=== PATIENT | female | born 1960 | race American Indian/Alaskan Native ===

== ENCOUNTER 2019-08-13 11:10 | Emergency (ER) | payer OTHER ==
--- NOTE | 2019-08-13 11:41 | Emergency Department Report ---
Chief Complaint: High BP Stated Complaint: BP HIGH Time Seen by Provider: 08/13/19 11:25 - HPI History of Present Illness: 59-year-old -[place] female presents to the emergency room concern for elevated blood pressure. Patient states that she woke up with about 4 AM and was having tingling in both hands. Patient states that she had no shortness of breath no headache no chest pain nausea vomiting or abdominal pain. Patient reports that she checked her blood pressure and it was elevated she went to the fire house they checked blood pressure was elevated so she decided to present to our ED. patient's blood pressure in triage was 174/95 and we repeated it here in the exam room and it was 165/91. Patient does report she is taking her lisinopril but not quite sure what the dosage. Patient does endorse that she has not seen her primary care provider in over a year and a half. - Exam Vital Signs: Vital Signs 08/13/19 08/13/19 11:13 11:31 Temperature 98 F Pulse Rate 98 H 92 H Respiratory 16 Rate Blood Pressure 174/95 Blood Pressure 165/91 [Left] O2 Sat by Pulse 100 Oximetry MSE screening note: Focused history and physical exam performed. Due to findings the following was ordered: 59-year-old -[place] female presents to the emergency room concern for elevated blood pressure. Patient states that she woke up with about 4 AM and was having tingling in both hands. Patient states that she had no shortness of breath no headache no chest pain nausea vomiting or abdominal pain. Patient reports that she checked her blood pressure and it was elevated she went to the fire house they checked blood pressure was elevated so she decided to present to our ED. patient's blood pressure in triage was 174/95 and we repeated it here in the exam room and it was 165/91. Patient does report she is taking her lisinopril but not quite sure what the dosage. Patient does endorse that she has not seen her primary care provider in over a year and a half. I recommend for you to follow-up with your primary care provider. I have also listed the [place] [facility] on [facility] as they may be able to assist you. Please continue to take your blood pressure medication as prescribed. Please try to follow a low-sodium diet refrain from processed foods sodas hot dogs ham dominguez and sausage. Increase your water intake. ED Disposition for MSE Disposition: Z-07 MED SCREENING EXAM-LEFT Is pt being admited?: No Does the pt Need Aspirin: No Condition: Stable Instructions: Hypertension (ED) Additional Instructions: I recommend for you to follow-up with your primary care provider. I have also listed the [place] clinic on [facility] as they may be able to assist you. Please continue to take your blood pressure medication as prescribed. Please try to follow a low-sodium diet refrain from processed foods sodas hot dogs ham dominguez and sausage. Increase your water intake. Referrals: [facility] [Other] - 3-5 Days
[2019-08-13 11:43] VITALS: BP 165/91
== END 2019-08-13 11:45 | disposition left against medical advice (07) ==
LOC: ED 11:10
DX: I10 Essential (primary) hypertension (principal); R20.2 Paresthesia of skin
CPT/HCPCS: 99282

== ENCOUNTER 2020-07-14 09:01 | Emergency (ER) | payer OTHER ==
--- NOTE | 2020-07-14 09:34 | Emergency Department Report ---
Blank Doc - Documentation Documentation: 60-year-old female that presents with acute symptoms of forgetfulness. Exam: Neuro exam is unremarkable. No facial droop. No one-sided weakness. 1- This initial assessment/diagnostic orders/clinical plan/ treatment(s) is/are subject to change based on pt's health status, clinical progression and re- assessment by fellow clinical providers in the ED. Further treatment and workup at subsequent clinical provers discretion. Patient/guardians urged not to elope from ED as their condition may be serious if not clinically assessed and managed. 2-labs with imaging studies
--- NOTE | 2020-07-14 10:21 | Cat Scan Report ---
CT head/brain wo con INDICATION / CLINICAL INFORMATION: 60 years Female; Patient complains of acute forgetful symptoms. TECHNIQUE: Routine CT head without contrast. All CT scans at this location are performed using CT dos e reduction for ALARA by means of automated exposure control. COMPARISON: None available. FINDINGS: There is encephalomalacia involving right frontal lobe most consistent with old infarct at. There is otherwise moderate cerebral white matter disease most consistent with microvascular angiopathy. There appear to be old small lacunar infarcts along the head of the caudate lobes. There is mild cerebral atrophy with associated mild prominence of the ventricular system. There are f oci of calcification within the basal ganglia. There is no clear CT evidence of acute intracranial he morrhage or significant mass effect. ORBITS: No significant abnormality of visualized orbits. SINUSES / MASTOIDS: No significant abnormality in the visualized paranasal sinuses or mastoid air denis ls. CRANIOCERVICAL JUNCTION: No significant abnormality. ADDITIONAL FINDINGS: There is prominence of the visualized nasopharyngeal soft tissues which is nonsp ecific though may reflect a lymphoid hypertrophy. IMPRESSION: 1. There is microvascular angiopathy as detailed above without CT evidence of acute intracranial hemo rrhage. Signer Name: Mario Abad MD Signed: 07/14/2020 10:17 AM Workstation Name: [id number]
[2020-07-14 10:24] LABS: Basophils % (Auto) 0.6 % (0.0-1.8); Eosinophils # (Auto) 0.1 K/mm3 (0.0-0.4); Eosinophils % (Auto) 0.9 % (0.0-4.3); Hematocrit 43.5 % (30.3-42.9); Hemoglobin 14.3 gm/dl (10.1-14.3); Lymphocytes # (Auto) 2.2 K/mm3 (1.2-5.4); Lymphocytes % (Auto) 34.1 % (13.4-35.0); Mean Corpuscular HGB Conc 33 % (30-34); Mean Corpuscular Volume 95 fl (79-97); Monocytes # (Auto) 0.5 K/mm3 (0.0-0.8); Monocytes % (Auto) 7.4 % (0.0-7.3); Platelet Count 269 K/mm3 (140-440); Red Blood Count 4.56 M/mm3 (3.65-5.03); Red Cell Distribution Width 13.9 % (13.2-15.2)
[2020-07-14 10:35] LABS: INR 0.97 (0.87-1.13)
[2020-07-14 10:36] LABS: Partial Thromboplastin Time 28.2 Sec. (24.2-36.6); Thrombin Time 17.4 Sec. (15.1-19.6)
[2020-07-14 10:47] LABS: Creatine Kinase MB 2.3 ng/mL (0.0-4.0)
[2020-07-14 10:49] LABS: Alanine Aminotransferase 12 units/L (7-56); BUN/Creatinine Ratio 14; Blood Urea Nitrogen 11 mg/dL (7-17); Calcium 8.8 mg/dL (8.4-10.2); Hemolysis Index 8
--- NOTE | 2020-07-14 11:58 | Emergency Department Report ---
ED General Adult HPI - General Chief complaint: Medical Clearance Stated complaint: Somebody is stealing my amBX stuff PUI?: No Time Seen by Provider: 07/14/20 09:31 Source: patient, family, EMS ( EMS documentation not available at time of chart dictation ), RN notes reviewed Mode of arrival: Ambulatory Limitations: Other (Patient is a poor historian) - History of Present Illness Initial comments: The patient was evaluated in the emergency department for symptoms described in the history of present illness. He/she was evaluated in the context of the global COVID-19 pandemic, which necessitated consideration that the patient might be at risk for infection with the virus that causes COVID-19. Institutional protocols and algorithms that pertain to the evaluation of patients at risk for COVID-19 are in a state of rapid change based on information released by regulatory bodies including the CDC and federal and foundations behavioral health organizations. These policies and algorithms were followed during the patient's care in the emergency department. Please note that these policies, procedures and recommendations changed on a rapid basis. The patient is a 60-year-old female. She has followed with the [facility] in the past. She also has a history of hypertension and hidradenitis. The patient lives with her grandson, Mr. Angeles; [phone]. History largely obtained from her grandson. The patient presented to the emergency room with a concern that someone is stealing her amBX paraphernalia and merchandise. The patient denies physical pain. Patient herself has no immediate medical complaints. She denies headache, neck pain, chest pain, abdominal pain, shortness of breath dysuria. S he denies homicidality and suicidality. She denies loss of taste and smell. She denies Covid symptomatology. As per her grandson, over the past year, the patient has had issues with "memory problems." The patient has become forgetful, she has been intermittently hallucinating, and has fluctuating moods. The patient has resisted medical evaluation in the past, because as per her grandson "she does not want to be called crazy." As per her grandson, no Covid exposure. As per her grandson, no trip and fall, cough, urinary symptoms, Covid exposure. Today, the patient was brought to the emergency room because the patient apparently called law enforcement while at home, because she was concerned that someone was stealing her amBX paraphernalia. As per her grandson, the patient is not really driving herself around, or taking care of her personal finances. -: month(s), year(s) Consistency: intermittent Improves with: none Worsens with: none Associated Symptoms: denies other symptoms - Related Data Home Medications Medication Instructions Recorded Confirmed Last Taken Lisinopril 07/14/20 3 Months Ago ~04/16/20 Allergies Allergy/AdvReac Type Severity Reaction Status Date / Time No Known Allergies Allergy Verified 07/14/20 12:59 ED Review of Systems ROS: Stated complaint: FORGETTING THINGS Other details as noted in HPI Constitutional: denies: fever Eyes: denies: eye discharge ENT: denies: epistaxis Respiratory: denies: cough Cardiovascular: denies: chest pain Gastrointestinal: denies: abdominal pain Genitourinary: denies: dysuria Neurological: confusion. denies: headache, weakness Psychiatric: other (Hallucinations). denies: homicidal thoughts, suicidal thoughts ED Past Medical Hx - Past Medical History Previous Medical History?: Yes Hx Hypertension: Yes - Surgical History Past Surgical History?: No - Social History Smoking Status: Never Smoker Substance Use Type: None - Medications Home Medications: Home Medications Medication Instructions Recorded Confirmed Last Taken Type Lisinopril 07/14/20 3 Months Ago History ~04/16/20 ED Physical Exam - General Limitations: Other (Patient is a poor historian) General appearance: in no apparent distress (The patient is alert to name. She knows that she is in the hospital.) - Head Head exam: Present: atraumatic, normocephalic - Eye Eye exam: Present: normal appearance, PERRL, EOMI, other (Visual acuity intact t o finger counting, color perception, reading at a close distance). Absent: nystagmus - ENT ENT exam: Present: normal exam, normal orophraynx, mucous membranes moist, normal external ear exam - Neck Neck exam: Present: normal inspection, full ROM. Absent: tenderness, meningismus - Respiratory Respiratory exam: Present: normal lung sounds bilaterally. Absent: respiratory distress, wheezes, rales, rhonchi, stridor, decreased breath sounds - Cardiovascular Cardiovascular Exam: Present: regular rate, normal rhythm, normal heart sounds. Absent: bradycardia, tachycardia, irregular rhythm, systolic murmur, diastolic murmur, rubs, gallop - GI/Abdominal GI/Abdominal exam: Present: soft. Absent: distended, tenderness, guarding, rebound, rigid, pulsatile mass - Extremities Exam Extremities exam: Present: normal inspection, full ROM, other (2+ pulses noted in the bilateral upper and lower extremities. There is no palpable cord. negative Homans sign. Muscular compartments are soft. The pelvis is stable.). Absent: pedal edema, calf tenderness - Back Exam Back exam: Present: normal inspection, full ROM. Absent: tenderness, CVA tenderness (R), CVA tenderness (L), paraspinal tenderness, vertebral tenderness - Neurological Exam Neurological exam: Present: alert (The patient is alert to name. She thinks it is June. She does not know the year. She does not know the current president. She is able to recall 3 out of 3 words at 0 minutes, and 0 out of 3 words at 5 minutes.), normal gait, other (No facial droop. Tongue midline. Extraocular movements intact bilaterally. Facial sensation intact to light touch in V1, V2, V3 distribution bilaterally. 5 and a 5 strength in 4 extremities. Sensation intact to light touch in 4 extremities.). Absent: motor sensory deficit (There is no past-pointing. There is normal [id number].) - Psychiatric Psychiatric exam: Present: normal affect, normal mood. Absent: homicidal ideation, suicidal ideation - Skin Skin exam: Present: warm, dry, intact, normal color. Absent: rash ED Course Vital Signs 07/14/20 07/14/20 07/14/20 09:08 11:39 11:41 Temperature 98.8 F 97.7 F Pulse Rate 100 H 98 H 84 Respiratory 15 14 16 Rate Blood Pressure 154/93 Blood Pressure 191/93 [Left] O2 Sat by Pulse 98 98 Oximetry 07/14/20 07/14/20 07/14/20 12:11 12:30 13:01 Temperature Pulse Rate 79 84 81 Respiratory 11 L 21 15 Rate Blood Pressure 191/93 152/74 155/90 Blood Pressure [Left] O2 Sat by Pulse Oximetry 07/14/20 07/14/20 07/14/20 13:31 14:00 14:27 Temperature Pulse Rate 83 92 H Respiratory 16 17 Rate Blood Pressure 155/78 164/81 178/107 Blood Pressure [Left] O2 Sat by Pulse 98 Oximetry - Reevaluation(s) Reevaluation #1: 07/14/20 13:04 Differential diagnosis, including but not limited to: Urinary tract infection, dementia, thyroid derangement, electrolyte derangement Assessment and plan: 60-year-old female, who was afebrile with reassuring vital signs with the exception of elevated blood pressure, presenting with loss of memory, cognitive function, hallucinations, fluctuating mood as per family, over the past year. Suspect dementia. Laboratory studies thus far unremarkable, urinalysis unremarkable, noncontrast CT scan of the brain negative for acute findings, TSH pending at this time. Case management consultation is requested. Psychiatric consultation is requested. At this point in time, patient presents as alert to name, pleasant and cooperative, not violent or combative, do not see indication for 1013 hold or involuntary hold at this time. Coronavirus screen is ordered in anticipation of possible placement into a geriatric psychiatry unit. Patient has evidence of a well-healed bilateral hidradenitis suppurativa in her bilateral axillary folds. However, she does not appear to be acutely infected. Reassess after TSH has resulted. Case management and psychiatric recommendations will be appreciated. I have discussed this extensively with the patient's grandson. Of note, the patient was taking [id number] caffeine supplementation,vivarin, but has not taken it as of recently. It appears that the main reason that the patient presented today is because her family is having difficulty with her behavior. Reevaluation #2: 07/14/20 13:08 TSH within normal limits. Patient resting comfortably in stretcher, and in no acute distress. Patient does not appear to have an immediate medical contraindication to psychiatric admission, evaluation, consultation and placement. Disposition as per psychiatry team, and case management team. If psychiatry recommends outpatient follow-up for presumed dementia, I think this would be reasonable, especially if case management is able to coordinate a safe disposition to home family 07/14/20 16:16 Psychiatric recommendations are reviewed and appreciated. They have recommended a 1013. I have signed this and ordered it. ED Medical Decision Making - Lab Data Result diagrams: 07/14/20 09:53 07/14/20 09:53 Vital Signs 07/14/20 07/14/20 07/14/20 09:08 11:39 11:41 Temperature 98.8 F 97.7 F Pulse Rate 100 H 98 H 84 Respiratory 15 14 16 Rate Blood Pressure 154/93 Blood Pressure 191/93 [Left] O2 Sat by Pulse 98 98 Oximetry 07/14/20 12:11 Temperature Pulse Rate 79 Respiratory 11 L Rate Blood Pressure 191/93 Blood Pressure [Left] O2 Sat by Pulse Oximetry Lab Results 07/14/20 07/14/20 07/14/20 Range/Units 09:53 09:53 09:53 WBC 6.5 (4.5-11.0) K/mm3 RBC 4.56 (3.65-5.03) M/mm3 Hgb 14.3 (10.1-14.3) gm/dl Hct 43.5 H (30.3-42.9) % MCV 95 (79-97) fl MCH 31 (28-32) pg MCHC 33 (30-34) % RDW 13.9 (13.2-15.2) % Plt Count 269 (140-440) K/mm3 Lymph % (Auto) 34.1 (13.4-35.0) % Davie % (Auto) 7.4 H (0.0-7.3) % Eos % (Auto) 0.9 (0.0-4.3) % Baso % (Auto) 0.6 (0.0-1.8) % Lymph # (Auto) 2.2 (1.2-5.4) K/mm3 Davie # (Auto) 0.5 (0.0-0.8) K/mm3 Eos # (Auto) 0.1 (0.0-0.4) K/mm3 Baso # (Auto) 0.0 (0.0-0.1) K/mm3 Seg Neutrophils % 57.0 (40.0-70.0) % Seg Neutrophils # 3.7 (1.8-7.7) K/mm3 PT 12.7 (12.2-14.9) Sec. INR 0.97 (0.87-1.13) APTT 28.2 (24.2-36.6) Sec. Thrombin Time 17.4 (15.1-19.6) Sec. Sodium 141 (137-145) mmol/L Potassium 3.5 L (3.6-5.0) mmol/L Chloride 103.1 (98-107) mmol/L Carbon Dioxide 26 (22-30) mmol/L Anion Gap 15 mmol/L BUN 11 (7-17) mg/dL Creatinine 0.8 (0.6-1.2) mg/dL Estimated GFR > 60 ml/min BUN/Creatinine Ratio 14 % Glucose 91 (65-100) mg/dL Calcium 8.8 (8.4-10.2) mg/dL Magnesium (1.7-2.3) mg/dL Total Bilirubin 0.30 (0.1-1.2) mg/dL AST 15 (5-40) units/L ALT 12 (7-56) units/L Alkaline Phosphatase 80 (35-129) units/L Total Creatine Kinase 234 H (30-135) units/L CK-MB (CK-2) 2.3 (0.0-4.0) ng/mL CK-MB (CK-2) Rel Index 0.9 (0-4) Troponin T < 0.010 (0.00-0.029) ng/mL Total Protein 7.5 (6.3-8.2) g/dL Albumin 4.0 (3.9-5) g/dL Albumin/Globulin Ratio 1.1 % Urine Color (Yellow) Urine Turbidity (Clear) Urine pH (5.0-7.0) Ur Specific [place] (1.003-1.030) Urine Protein (Negative) mg/dL Urine Glucose (UA) (Negative) mg/dL Urine Ketones (Negative) mg/dL Urine Blood (Negative) Urine Nitrite (Negative) Urine Bilirubin (Negative) Urine Urobilinogen (<2.0) mg/dL Ur Leukocyte Esterase (Negative) Urine WBC (Auto) (0.0-6.0) /HPF Urine RBC (Auto) (0.0-6.0) /HPF U Epithel Cells (Auto) (0-13.0) /HPF Urine Mucus /HPF Salicylates (2.8-20.0) mg/dL Urine Opiates Screen Urine Methadone Screen Acetaminophen (10.0-30.0) ug/mL Ur Barbiturates Screen Ur Phencyclidine Scrn Ur Amphetamines Screen U Benzodiazepines Scrn Urine Cocaine Screen U Marijuana (THC) Screen Drugs of Abuse Note Plasma/Serum Alcohol (0-0.07) % 05/09/21 05/09/21 05/09/21 Range/Units 11:53 11:53 12:15 WBC (4.5-11.0) K/mm3 RBC (3.65-5.03) M/mm3 Hgb (10.1-14.3) gm/dl Hct (30.3-42.9) % MCV (79-97) fl MCH (28-32) pg MCHC (30-34) % RDW (13.2-15.2) % Plt Count (140-440) K/mm3 Lymph % (Auto) (13.4-35.0) % Davie % (Auto) (0.0-7.3) % Eos % (Auto) (0.0-4.3) % Baso % (Auto) (0.0-1.8) % Lymph # (Auto) (1.2-5.4) K/mm3 Davie # (Auto) (0.0-0.8) K/mm3 Eos # (Auto) (0.0-0.4) K/mm3 Baso # (Auto) (0.0-0.1) K/mm3 Seg Neutrophils % (40.0-70.0) % Seg Neutrophils # (1.8-7.7) K/mm3 PT (12.2-14.9) Sec. INR (0.87-1.13) APTT (24.2-36.6) Sec. Thrombin Time (15.1-19.6) Sec. Sodium (137-145) mmol/L Potassium (3.6-5.0) mmol/L Chloride (98-107) mmol/L Carbon Dioxide (22-30) mmol/L Anion Gap mmol/L BUN (7-17) mg/dL Creatinine (0.6-1.2) mg/dL Estimated GFR ml/min BUN/Creatinine Ratio % Glucose (65-100) mg/dL Calcium (8.4-10.2) mg/dL Magnesium 1.90 (1.7-2.3) mg/dL Total Bilirubin (0.1-1.2) mg/dL AST (5-40) units/L ALT (7-56) units/L Alkaline Phosphatase (35-129) units/L Total Creatine Kinase 233 H (30-135) units/L CK-MB (CK-2) (0.0-4.0) ng/mL CK-MB (CK-2) Rel Index (0-4) Troponin T (0.00-0.029) ng/mL Total Protein (6.3-8.2) g/dL Albumin (3.9-5) g/dL Albumin/Globulin Ratio % Urine Color Yellow (Yellow) Urine Turbidity Clear (Clear) Urine pH 6.0 (5.0-7.0) Ur Specific [place] 1.023 (1.003-1.030) Urine Protein 30 mg/dl (Negative) mg/dL Urine Glucose (UA) Neg (Negative) mg/dL Urine Ketones 20 (Negative) mg/dL Urine Blood Neg (Negative) Urine Nitrite Neg (Negative) Urine Bilirubin Neg (Negative) Urine Urobilinogen < 2.0 (<2.0) mg/dL Ur Leukocyte Esterase Sm (Negative) Urine WBC (Auto) 4.0 (0.0-6.0) /HPF Urine RBC (Auto) 4.0 (0.0-6.0) /HPF U Epithel Cells (Auto) 2.0 (0-13.0) /HPF Urine Mucus 1+ /HPF Salicylates (2.8-20.0) mg/dL Urine Opiates Screen Negative Urine Methadone Screen Negative Acetaminophen (10.0-30.0) ug/mL Ur Barbiturates Screen Negative Ur Phencyclidine Scrn Negative Ur Amphetamines Screen Negative U Benzodiazepines Scrn Negative Urine Cocaine Screen Negative U Marijuana (THC) Screen Negative Drugs of Abuse Note Disclamer Plasma/Serum Alcohol (0-0.07) % 07/14/20 07/14/20 07/14/20 Range/Units 12:15 12:15 12:15 WBC (4.5-11.0) K/mm3 RBC (3.65-5.03) M/mm3 Hgb (10.1-14.3) gm/dl Hct (30.3-42.9) % MCV (79-97) fl MCH (28-32) pg MCHC (30-34) % RDW (13.2-15.2) % Plt Count (140-440) K/mm3 Lymph % (Auto) (13.4-35.0) % Davie % (Auto) (0.0-7.3) % Eos % (Auto) (0.0-4.3) % Baso % (Auto) (0.0-1.8) % Lymph # (Auto) (1.2-5.4) K/mm3 Davie # (Auto) (0.0-0.8) K/mm3 Eos # (Auto) (0.0-0.4) K/mm3 Baso # (Auto) (0.0-0.1) K/mm3 Seg Neutrophils % (40.0-70.0) % Seg Neutrophils # (1.8-7.7) K/mm3 PT (12.2-14.9) Sec. INR (0.87-1.13) APTT (24.2-36.6) Sec. Thrombin Time (15.1-19.6) Sec. Sodium (137-145) mmol/L Potassium (3.6-5.0) mmol/L Chloride (98-107) mmol/L Carbon Dioxide (22-30) mmol/L Anion Gap mmol/L BUN (7-17) mg/dL Creatinine (0.6-1.2) mg/dL Estimated GFR ml/min BUN/Creatinine Ratio % Glucose (65-100) mg/dL Calcium (8.4-10.2) mg/dL Magnesium (1.7-2.3) mg/dL Total Bilirubin (0.1-1.2) mg/dL AST (5-40) units/L ALT (7-56) units/L Alkaline Phosphatase (35-129) units/L Total Creatine Kinase (30-135) units/L CK-MB (CK-2) (0.0-4.0) ng/mL CK-MB (CK-2) Rel Index (0-4) Troponin T (0.00-0.029) ng/mL Total Protein (6.3-8.2) g/dL Albumin (3.9-5) g/dL Albumin/Globulin Ratio % Urine Color (Yellow) Urine Turbidity (Clear) Urine pH (5.0-7.0) Ur Specific [place] (1.003-1.030) Urine Protein (Negative) mg/dL Urine Glucose (UA) (Negative) mg/dL Urine Ketones (Negative) mg/dL Urine Blood (Negative) Urine Nitrite (Negative) Urine Bilirubin (Negative) Urine Urobilinogen (<2.0) mg/dL Ur Leukocyte Esterase (Negative) Urine WBC (Auto) (0.0-6.0) /HPF Urine RBC (Auto) (0.0-6.0) /HPF U Epithel Cells (Auto) (0-13.0) /HPF Urine Mucus /HPF Salicylates < 0.3 L (2.8-20.0) mg/dL Urine Opiates Screen Urine Methadone Screen Acetaminophen 5.0 L (10.0-30.0) ug/mL Ur Barbiturates Screen Ur Phencyclidine Scrn Ur Amphetamines Screen U Benzodiazepines Scrn Urine Cocaine Screen U Marijuana (THC) Screen Drugs of Abuse Note Plasma/Serum Alcohol < 0.01 (0-0.07) % - EKG Data -: EKG Interpreted by Ut EKG shows normal: sinus rhythm Rate: normal - EKG Data When compared to previous EKG there are: previous EKG unavailable 07/14/20 12:59 EKG interpreted at 09: 45 Sinus rhythm, 84 bpm. Normal axis. Normal P wave axis. Left ventricular hypertrophy. QTC prolonged. Single PVC. Abnormal EKG. Not a STEMI. No prior for comparison. - Radiology Data Radiology results: pending, report reviewed, image reviewed CT head/brain wo con INDICATION / CLINICAL INFORMATION: 60 years Female; Patient complains of acute forgetful symptoms. TECHNIQUE: Routine CT head without contrast. All CT scans at this location are performed using CT dose reduction for ALARA by means of automated exposure control. COMPARISON: None available. FINDINGS: There is encephalomalacia involving right frontal lobe most consistent with old infarct at. There is otherwise moderate cerebral white matter disease most consistent with microvascular angiopathy. There appear to be old small lacunar infarcts along the head of the caudate lobes. There is mild cerebral atrophy with associated mild prominence of the ventricular system. There are foci of calcification within the basal ganglia. There is no clear CT evidence of acute intracranial hemorrhage or significant mass effect. ORBITS: No significant abnormality of visualized orbits. SINUSES / MASTOIDS: No significant abnormality in the visualized paranasal sinuses or mastoid air cells. CRANIOCERVICAL JUNCTION: No significant abnormality. ADDITIONAL FINDINGS: There is prominence of the visualized nasopharyngeal soft tissues which is nonspecific though may reflect a lymphoid hypertrophy. IMPRESSION: 1. There is microvascular angiopathy as detailed above without CT evidence of acute intracranial hemorrhage. Signer Name: Mario Abad MD Signed: 07/14/2020 9:17 AM Workstation Name: [id number] Critical care attestation.: If time is entered above; I have spent that time in minutes in the direct care of this critically ill patient, excluding procedure time. ED Disposition Clinical Impression: Elevated blood pressure reading, Memory changes, Cognitive and behavioral changes, Medical clearance for psychiatric admission Disposition: DC/TX-65 PSY HOSP/PSY UNIT Is pt being admited?: No Does the pt Need Aspirin: No Condition: Good Referrals: PRIMARY CARE, [Primary Care Provider] - 3-5 Days
[2020-07-14 12:44] LABS: Amphetamine Screen,Urine Negative; Benzodiazepines Screen,Urine Negative; Cannabinoid Screen,Urine Negative; Cocaine Screen,Urine Negative; Methadone Screen,Urine Negative; Opiate Screen,Urine Negative
[2020-07-14 12:47] LABS: Bilirubin,Urine NEG (Negative); Blood,Urine NEG (Negative); Color,Urine Yellow (Yellow); Mucus,Urine 1+ /HPF; Urobilinogen,Urine < 2.0 mg/dL (<2.0)
[2020-07-14] MEDS ORDERED: diphenhydrAMINE 25 MG CAP PO PRN (12:57)
[2020-07-14] MEDS ORDERED: ACETAMINOPHEN 325 MG TAB PO PRN (12:57)
[2020-07-14] MEDS ORDERED: ONDANSETRON 4 MG ODT TAB PO PRN (12:57)
[2020-07-14] MEDS: amLODIPine 5 MG TAB PO SCH (14:27)
[2020-07-15 09:20] VITALS: BP 123/85
--- NOTE | 2020-07-15 10:34 | Event Note ---
Date: 07/15/20 The patient was evaluated in the emergency department for symptoms described in the history of present illness. He/she was evaluated in the context of the global COVID-19 pandemic, which necessitated consideration that the patient might be at risk for infection with the virus that causes COVID-19. Institutional protocols and algorithms that pertain to the evaluation of patients at risk for COVID-19 are in a state of rapid change based on information released by regulatory bodies including the CDC and federal and state organizations. These policies and algorithms were followed during the patient's care in the emergency department. Please note that these policies, procedures and recommendations changed on a rapid basis. Patient in no acute distress. Blood pressure improved. Nursing team has not endorsed any emergent complaints. Patient has not articulated any complaints. It appears that she has been accepted to [facility] for further psychiatric evaluation. The patient remains medically suitable for psychiatric consultation and evaluation at this time. Vital Signs 07/14/20 07/14/20 07/14/20 09:08 11:39 11:41 Temperature 98.8 F 97.7 F Pulse Rate 100 H 98 H 84 Respiratory 15 14 16 Rate Blood Pressure 154/93 Blood Pressure 191/93 [Left] O2 Sat by Pulse 98 98 Oximetry 07/14/20 07/14/20 07/14/20 12:11 12:30 13:01 Temperature Pulse Rate 79 84 81 Respiratory 11 L 21 15 Rate Blood Pressure 191/93 152/74 155/90 Blood Pressure [Left] O2 Sat by Pulse Oximetry 07/14/20 07/14/20 07/14/20 13:31 14:00 14:27 Temperature Pulse Rate 83 92 H Respiratory 16 17 Rate Blood Pressure 155/78 164/81 178/107 Blood Pressure [Left] O2 Sat by Pulse 98 Oximetry 07/14/20 07/14/20 07/15/20 20:30 22:00 02:00 Temperature 97.6 F 98.0 F Pulse Rate 89 82 Respiratory 18 18 16 Rate Blood Pressure Blood Pressure 156/55 120/69 [Left] O2 Sat by Pulse 100 100 95 Oximetry 07/15/20 09:17 Temperature 98.6 F Pulse Rate 68 Respiratory 18 Rate Blood Pressure Blood Pressure 123/85 [Left] O2 Sat by Pulse 98 Oximetry Lab Results 07/14/20 07/14/20 07/14/20 Range/Units 09:53 09:53 09:53 WBC 6.5 (4.5-11.0) K/mm3 RBC 4.56 (3.65-5.03) M/mm3 Hgb 14.3 (10.1-14.3) gm/dl Hct 43.5 H (30.3-42.9) % MCV 95 (79-97) fl MCH 31 (28-32) pg MCHC 33 (30-34) % RDW 13.9 (13.2-15.2) % Plt Count 269 (140-440) K/mm3 Lymph % (Auto) 34.1 (13.4-35.0) % [place] % (Auto) 7.4 H (0.0-7.3) % Eos % (Auto) 0.9 (0.0-4.3) % Baso % (Auto) 0.6 (0.0-1.8) % Lymph # (Auto) 2.2 (1.2-5.4) K/mm3 [place] # (Auto) 0.5 (0.0-0.8) K/mm3 Eos # (Auto) 0.1 (0.0-0.4) K/mm3 Baso # (Auto) 0.0 (0.0-0.1) K/mm3 Seg Neutrophils % 57.0 (40.0-70.0) % Seg Neutrophils # 3.7 (1.8-7.7) K/mm3 PT 12.7 (12.2-14.9) Sec. INR 0.97 (0.87-1.13) APTT 28.2 (24.2-36.6) Sec. Thrombin Time 17.4 (15.1-19.6) Sec. Sodium 141 (137-145) mmol/L Potassium 3.5 L (3.6-5.0) mmol/L Chloride 103.1 (98-107) mmol/L Carbon Dioxide 26 (22-30) mmol/L Anion Gap 15 mmol/L BUN 11 (7-17) mg/dL Creatinine 0.8 (0.6-1.2) mg/dL Estimated GFR > 60 ml/min BUN/Creatinine Ratio 14 % Glucose 91 (65-100) mg/dL Calcium 8.8 (8.4-10.2) mg/dL Magnesium (1.7-2.3) mg/dL Total Bilirubin 0.30 (0.1-1.2) mg/dL AST 15 (5-40) units/L ALT 12 (7-56) units/L Alkaline Phosphatase 80 (35-129) units/L Total Creatine Kinase 234 H (30-135) units/L CK-MB (CK-2) 2.3 (0.0-4.0) ng/mL CK-MB (CK-2) Rel Index 0.9 (0-4) Troponin T < 0.010 (0.00-0.029) ng/mL Total Protein 7.5 (6.3-8.2) g/dL Albumin 4.0 (3.9-5) g/dL Albumin/Globulin Ratio 1.1 % TSH (0.270-4.200) mlU/mL Urine Color (Yellow) Urine Turbidity (Clear) Urine pH (5.0-7.0) Ur Specific [place] (1.003-1.030) Urine Protein (Negative) mg/dL Urine Glucose (UA) (Negative) mg/dL Urine Ketones (Negative) mg/dL Urine Blood (Negative) Urine Nitrite (Negative) Urine Bilirubin (Negative) Urine Urobilinogen (<2.0) mg/dL Ur Leukocyte Esterase (Negative) Urine WBC (Auto) (0.0-6.0) /HPF Urine RBC (Auto) (0.0-6.0) /HPF U Epithel Cells (Auto) (0-13.0) /HPF Urine Mucus /HPF Salicylates (2.8-20.0) mg/dL Urine Opiates Screen Urine Methadone Screen Acetaminophen (10.0-30.0) ug/mL Ur Barbiturates Screen Ur Phencyclidine Scrn Ur Amphetamines Screen U Benzodiazepines Scrn Urine Cocaine Screen U Marijuana (THC) Screen Drugs of Abuse Note Plasma/Serum Alcohol (0-0.07) % 07/14/20 07/14/20 07/14/20 Range/Units 11:53 11:53 12:15 WBC (4.5-11.0) K/mm3 RBC (3.65-5.03) M/mm3 Hgb (10.1-14.3) gm/dl Hct (30.3-42.9) % MCV (79-97) fl MCH (28-32) pg MCHC (30-34) % RDW (13.2-15.2) % Plt Count (140-440) K/mm3 Lymph % (Auto) (13.4-35.0) % [place] % (Auto) (0.0-7.3) % Eos % (Auto) (0.0-4.3) % Baso % (Auto) (0.0-1.8) % Lymph # (Auto) (1.2-5.4) K/mm3 [place] # (Auto) (0.0-0.8) K/mm3 Eos # (Auto) (0.0-0.4) K/mm3 Baso # (Auto) (0.0-0.1) K/mm3 Seg Neutrophils % (40.0-70.0) % Seg Neutrophils # (1.8-7.7) K/mm3 PT (12.2-14.9) Sec. INR (0.87-1.13) APTT (24.2-36.6) Sec. Thrombin Time (15.1-19.6) Sec. Sodium (137-145) mmol/L Potassium (3.6-5.0) mmol/L Chloride (98-107) mmol/L Carbon Dioxide (22-30) mmol/L Anion Gap mmol/L BUN (7-17) mg/dL Creatinine (0.6-1.2) mg/dL Estimated GFR ml/min BUN/Creatinine Ratio % Glucose (65-100) mg/dL Calcium (8.4-10.2) mg/dL Magnesium 1.90 (1.7-2.3) mg/dL Total Bilirubin (0.1-1.2) mg/dL AST (5-40) units/L ALT (7-56) units/L Alkaline Phosphatase (35-129) units/L Total Creatine Kinase 233 H (30-135) units/L CK-MB (CK-2) (0.0-4.0) ng/mL CK-MB (CK-2) Rel Index (0-4) Troponin T (0.00-0.029) ng/mL Total Protein (6.3-8.2) g/dL Albumin (3.9-5) g/dL Albumin/Globulin Ratio % TSH (0.270-4.200) mlU/mL Urine Color Yellow (Yellow) Urine Turbidity Clear (Clear) Urine pH 6.0 (5.0-7.0) Ur Specific [place] 1.023 (1.003-1.030) Urine Protein 30 mg/dl (Negative) mg/dL Urine Glucose (UA) Neg (Negative) mg/dL Urine Ketones 20 (Negative) mg/dL Urine Blood Neg (Negative) Urine Nitrite Neg (Negative) Urine Bilirubin Neg (Negative) Urine Urobilinogen < 2.0 (<2.0) mg/dL Ur Leukocyte Esterase Sm (Negative) Urine WBC (Auto) 4.0 (0.0-6.0) /HPF Urine RBC (Auto) 4.0 (0.0-6.0) /HPF U Epithel Cells (Auto) 2.0 (0-13.0) /HPF Urine Mucus 1+ /HPF Salicylates (2.8-20.0) mg/dL Urine Opiates Screen Negative Urine Methadone Screen Negative Acetaminophen (10.0-30.0) ug/mL Ur Barbiturates Screen Negative Ur Phencyclidine Scrn Negative Ur Amphetamines Screen Negative U Benzodiazepines Scrn Negative Urine Cocaine Screen Negative U Marijuana (THC) Screen Negative Drugs of Abuse Note Disclamer Plasma/Serum Alcohol (0-0.07) % 07/14/20 07/14/20 07/14/20 Range/Units 12:15 12:15 12:15 WBC (4.5-11.0) K/mm3 RBC (3.65-5.03) M/mm3 Hgb (10.1-14.3) gm/dl Hct (30.3-42.9) % MCV (79-97) fl MCH (28-32) pg MCHC (30-34) % RDW (13.2-15.2) % Plt Count (140-440) K/mm3 Lymph % (Auto) (13.4-35.0) % [place] % (Auto) (0.0-7.3) % Eos % (Auto) (0.0-4.3) % Baso % (Auto) (0.0-1.8) % Lymph # (Auto) (1.2-5.4) K/mm3 [place] # (Auto) (0.0-0.8) K/mm3 Eos # (Auto) (0.0-0.4) K/mm3 Baso # (Auto) (0.0-0.1) K/mm3 Seg Neutrophils % (40.0-70.0) % Seg Neutrophils # (1.8-7.7) K/mm3 PT (12.2-14.9) Sec. INR (0.87-1.13) APTT (24.2-36.6) Sec. Thrombin Time (15.1-19.6) Sec. Sodium (137-145) mmol/L Potassium (3.6-5.0) mmol/L Chloride (98-107) mmol/L Carbon Dioxide (22-30) mmol/L Anion Gap mmol/L BUN (7-17) mg/dL Creatinine (0.6-1.2) mg/dL Estimated GFR ml/min BUN/Creatinine Ratio % Glucose (65-100) mg/dL Calcium (8.4-10.2) mg/dL Magnesium (1.7-2.3) mg/dL Total Bilirubin (0.1-1.2) mg/dL AST (5-40) units/L ALT (7-56) units/L Alkaline Phosphatase (35-129) units/L Total Creatine Kinase (30-135) units/L CK-MB (CK-2) (0.0-4.0) ng/mL CK-MB (CK-2) Rel Index (0-4) Troponin T (0.00-0.029) ng/mL Total Protein (6.3-8.2) g/dL Albumin (3.9-5) g/dL Albumin/Globulin Ratio % TSH 0.562 (0.270-4.200) mlU/mL Urine Color (Yellow) Urine Turbidity (Clear) Urine pH (5.0-7.0) Ur Specific [place] (1.003-1.030) Urine Protein (Negative) mg/dL Urine Glucose (UA) (Negative) mg/dL Urine Ketones (Negative) mg/dL Urine Blood (Negative) Urine Nitrite (Negative) Urine Bilirubin (Negative) Urine Urobilinogen (<2.0) mg/dL Ur Leukocyte Esterase (Negative) Urine WBC (Auto) (0.0-6.0) /HPF Urine RBC (Auto) (0.0-6.0) /HPF U Epithel Cells (Auto) (0-13.0) /HPF Urine Mucus /HPF Salicylates < 0.3 L (2.8-20.0) mg/dL Urine Opiates Screen Urine Methadone Screen Acetaminophen 5.0 L (10.0-30.0) ug/mL Ur Barbiturates Screen Ur Phencyclidine Scrn Ur Amphetamines Screen U Benzodiazepines Scrn Urine Cocaine Screen U Marijuana (THC) Screen Drugs of Abuse Note Plasma/Serum Alcohol (0-0.07) % 07/14/20 Range/Units 12:15 WBC (4.5-11.0) K/mm3 RBC (3.65-5.03) M/mm3 Hgb (10.1-14.3) gm/dl Hct (30.3-42.9) % MCV (79-97) fl MCH (28-32) pg MCHC (30-34) % RDW (13.2-15.2) % Plt Count (140-440) K/mm3 Lymph % (Auto) (13.4-35.0) % [place] % (Auto) (0.0-7.3) % Eos % (Auto) (0.0-4.3) % Baso % (Auto) (0.0-1.8) % Lymph # (Auto) (1.2-5.4) K/mm3 [place] # (Auto) (0.0-0.8) K/mm3 Eos # (Auto) (0.0-0.4) K/mm3 Baso # (Auto) (0.0-0.1) K/mm3 Seg Neutrophils % (40.0-70.0) % Seg Neutrophils # (1.8-7.7) K/mm3 PT (12.2-14.9) Sec. INR (0.87-1.13) APTT (24.2-36.6) Sec. Thrombin Time (15.1-19.6) Sec. Sodium (137-145) mmol/L Potassium (3.6-5.0) mmol/L Chloride (98-107) mmol/L Carbon Dioxide (22-30) mmol/L Anion Gap mmol/L BUN (7-17) mg/dL Creatinine (0.6-1.2) mg/dL Estimated GFR ml/min BUN/Creatinine Ratio % Glucose (65-100) mg/dL Calcium (8.4-10.2) mg/dL Magnesium (1.7-2.3) mg/dL Total Bilirubin (0.1-1.2) mg/dL AST (5-40) units/L ALT (7-56) units/L Alkaline Phosphatase (35-129) units/L Total Creatine Kinase (30-135) units/L CK-MB (CK-2) (0.0-4.0) ng/mL CK-MB (CK-2) Rel Index (0-4) Troponin T (0.00-0.029) ng/mL Total Protein (6.3-8.2) g/dL Albumin (3.9-5) g/dL Albumin/Globulin Ratio % TSH (0.270-4.200) mlU/mL Urine Color (Yellow) Urine Turbidity (Clear) Urine pH (5.0-7.0) Ur Specific [place] (1.003-1.030) Urine Protein (Negative) mg/dL Urine Glucose (UA) (Negative) mg/dL Urine Ketones (Negative) mg/dL Urine Blood (Negative) Urine Nitrite (Negative) Urine Bilirubin (Negative) Urine Urobilinogen (<2.0) mg/dL Ur Leukocyte Esterase (Negative) Urine WBC (Auto) (0.0-6.0) /HPF Urine RBC (Auto) (0.0-6.0) /HPF U Epithel Cells (Auto) (0-13.0) /HPF Urine Mucus /HPF Salicylates (2.8-20.0) mg/dL Urine Opiates Screen Urine Methadone Screen Acetaminophen (10.0-30.0) ug/mL Ur Barbiturates Screen Ur Phencyclidine Scrn Ur Amphetamines Screen U Benzodiazepines Scrn Urine Cocaine Screen U Marijuana (THC) Screen Drugs of Abuse Note Plasma/Serum Alcohol < 0.01 (0-0.07) %
--- NOTE | 2020-07-15 11:14 | Electrocardiograph Report ---
[facility] Test Date: 2020-07-14 Test Time: 09:42:41 Pat Name: RANJIT JOINER Department: Room: Gender: F [employer] Teacher: MARILY ANAND : 1960 Requested By: ROBBIE MOREJON Order Number: [id number] Reading MD: Fam Joseph Measurements Intervals [place] Rate: 84 P: 100 [place]: 164 QRS: 34 QRSD: 76 T: 35 QT: 394 QTc: 463 Interpretive Statements Sinus rhythm Ventricular premature complex Biatrial enlargement No previous ECG available for comparison Electronically Signed On 07-15-2020 11:13:53 EDT by Fam Joseph
[2020-07-15] MEDS: amLODIPine 5 MG TAB PO SCH (11:54)
== END 2020-07-15 12:15 ==
LOC: ED 09:01
DX: R03.0 Elevated blood-pressure reading, without diagnosis of hypertension (principal); Z20.822 Contact with and (suspected) exposure to COVID-19; R41.3 Other amnesia; R46.89 Other symptoms and signs involving appearance and behavior; R79.1 Abnormal coagulation profile; I10 Essential (primary) hypertension; Z79.899 Other long term (current) drug therapy
CPT/HCPCS: 36415; 70450; 80053; 80307; 81001; 82550; 82553; 83735; 84443; 84484; 85025; 85610; 85670; 85730; 93005; 99285; U0003; 80320; G0480